=== PATIENT | female | born 1985 | race Caucasian/White ===

== ENCOUNTER 2022-11-25 18:35 | Emergency (ER) | payer SELFPAY ==
[~2022-11-25] VITALS: Ht 162.5 cm; Wt 94.7 kg
[2022-11-25 19:10] LABS: BILIRUBIN,URINE NEGATIVE (NEGATIVE); CLARITY,URINE CLEAR; COLOR,URINE YELLOW; GLUCOSE, URINE (UA) NEGATIVE (NEGATIVE); KETONES,URINE NEGATIVE (NEGATIVE); LEUKOCYTE ESTERASE ,URINE NEGATIVE (NEGATIVE); NITRITE,URINE NEGATIVE (NEGATIVE); PH,URINE 6.5 (5-9); PROTEIN,URINE NEGATIVE (NEGATIVE)
[2022-11-25 19:15] LABS: BACTERIA,URINE NEGATIVE /HPF
[2022-11-25] MEDS ORDERED: ONDANSETRON 4 MG ORAL DISSOLVE TABLET PO STA (19:31)
[2022-11-25] MEDS ORDERED: HYDROcodone/ACETAMINOPHEN 5 MG/325 MG TABLET PO ONE (19:45)
[2022-11-25] MEDS ORDERED: ONDA4TAB11 PO (19:50)
[2022-11-25] MEDS ORDERED: ACHD5005 PO (19:50)
[2022-11-25] MEDS ORDERED: NIRM1TAB PO (19:50)
--- NOTE | 2022-11-25 19:50 | ED Cough/URI ---
General Chief Complaint: COVID19 Suspect/Confirmed Stated Complaint: OB, FEVER Nursing Triage Note: Patient is 7 months . Patient reports that she began showing symptoms of illness yesterday. Patient reports fever, sore throat, headache, earache and vomiting. Patient is able to tolerate drinking fluid but is unable to hold down food. Patient took 650mg of Tylenol at 14:00 today. Source: patient, family (Has been), RN notes reviewed Exam Limitations: language barrier History of Present Illness Date Seen by Provider: Nov 25, 2022 Time Seen by Provider: 18:52 Initial Comments 37-year-old Northern Irish-speaking female patient from [place], at 28 weeks of gestation presented with her with complaining of nasal congestion, sore throat, earache, headache, nausea, posttussive vomiting, myalgia, subjective fever and not feeling good. Patient flew from [place] 5 days ago and did not have sick contact at home. Patient denies abdominal pain, contractions, vaginal bleeding or discharge, urinary symptoms. Patient tolerated oral intake. Timing/Duration: yesterday Severity/Quality: moderate, dry cough Associated Symptoms: cough, earache, fever/chills, headache, muscle aches, nasal congestion, nasal drainage, shortness of breath, sore throat Allergies and Home Medications Allergies Coded Allergies: No Known Drug Allergies (Unverified , 11/25/22) Patient Home Medication List Home Medication List Reviewed: Yes Hydrocodone/Acetaminophen (Hydrocodone-Acetamin 5-325 mg) 5 Mg-325 Mg Tablet, 1 TAB PO Q6H PRN for PAIN-MODERATE (5-7) Prescribed by: Andrea ashley on 11/25/221950 Nirmatrelvir/Ritonavir (Paxlovid 300-100 mg Pack (Eua)) 300 Mg (150 Mg X 2)-100 Mg Tab.ds.pk, 1 EACH PO DAILY Prescribed by: Andrea ashley on 11/25/221949 Ondansetron (Ondansetron Odt) 4 Mg Tab.rapdis, 4 MG PO TID PRN for NAUSEA-1ST LINE Prescribed by: Andrea ashley on 11/25/221949 Review of Systems Review of Systems Constitutional: see HPI EENTM: see HPI Respiratory: see HPI Cardiovascular: no symptoms reported Gastrointestinal: see HPI Genitourinary: see HPI Musculoskeletal: see HPI Skin: no symptoms reported Psychiatric/Neurological: No Symptoms Reported Hematologic/Lymphatic: No Symptoms Reported Immunological/Allergic: no symptoms reported Past Qridcgk-Vhovdg-Nwtamp Hx Patient Social History Tobacco Use?: No Substance use?: No Alcohol Use?: No Pt feels they are or have been: No Physical Exam Vital Signs - First Documented 11/25/22 18:40 Temp 37.3 Pulse 120 Resp 18 B/P (MAP) 153/90 (111) Pulse Ox 97 O2 Delivery Room Air Capillary Refill : Less Than 3 Seconds Height: '" Weight: lbs. oz. kg; 35.00 BMI Method: General Appearance: mild distress Eyes: Bilateral Eye Normal Inspection, Bilateral Eye PERRL HEENT: PERRL/EOMI, TMs normal, pharyngeal erythema Neck: non-tender, full range of motion, supple, normal inspection Respiratory: chest non-tender, lungs clear, normal breath sounds, no respiratory distress Cardiovascular: no edema, no gallop, tachycardia Gastrointestinal: normal bowel sounds, non tender, soft, other (Gravid abdomen, no contraction or tenderness) Extremities: normal range of motion, non-tender Neurologic/Psychiatric: alert Skin: normal color, warm/dry Lymphatic: no adenopathy Progress/Results/Core Measures Suspected Sepsis SIRS Temperature: Pulse: 120 Respiratory Rate: 18 Blood Pressure 153 /90 Mean: 111 Results/Orders Lab Results Laboratory Tests Test 11/25/22 18:46 11/25/22 19:02 Range/Units Urine Color YELLOW Urine Clarity CLEAR Urine pH 6.5 5-9 Urine Specific Severy <=1.005 1.016-1.022 Urine Protein NEGATIVE NEGATIVE Urine Glucose (UA) NEGATIVE NEGATIVE Urine Ketones NEGATIVE NEGATIVE Urine Nitrite NEGATIVE NEGATIVE Urine Bilirubin NEGATIVE NEGATIVE Urine Urobilinogen 0.2 < = 1.0 MG/DL Urine Leukocyte Esterase NEGATIVE NEGATIVE Urine RBC (Auto) NEGATIVE NEGATIVE Urine RBC NONE /HPF Urine WBC NONE /HPF Urine Squamous Epithelial Cells 5-10 /HPF Urine Crystals NONE /LPF Urine Bacteria NEGATIVE /HPF Urine Casts NONE /LPF Urine Mucus NEGATIVE /LPF Urine Culture Indicated NO Influenza Type A (RT-PCR) Not Detected Not Detecte Influenza Type B (RT-PCR) Not Detected Not Detecte SARS-CoV-2 RNA (RT-PCR) Detected H Not Detecte My Orders Orders - ANDREA ASHLEY MD Ua Culture If Indicated (11/25/22 19:01) Covid 19 Inhouse Test (11/25/22 19:01) Influenza A And B By Pcr (11/25/22 19:01) Hydrocodone/Apap 5/325 Tablet (Hydrocod (11/25/22 19:45) Ondansetron Oral Dissolve Tab (Ondanset (11/25/22 19:31) Medications Given in ED Current Medications Medications Dose Ordered Sig/Bailey Route Start Time Stop Time Status Last Admin Dose Admin Acetaminophen/ Hydrocodone Bitart 1 ea ONCE ONCE PO 11/25/22 19:45 11/25/22 19:46 DC 11/25/22 19:37 1 EA Vital Signs/I&O 11/25/22 11/25/22 18:40 19:51 Temp 37.3 Pulse 120 113 Resp 18 18 B/P (MAP) 153/90 (111) 153/98 Pulse Ox 97 99 O2 Delivery Room Air Room Air Capillary Refill : Less Than 3 Seconds Blood Pressure Mean: 111 Progress Note : Progress Note Differential diagnosis: COVID infection, influenza, UTI, viral upper respiratory infection 37-year-old at 28 weeks of gestation from [place] of town who flew from [place] 5 days ago presented with her who is translating for her with complaining of headache, earache, sore throat, cough, nausea and posttussive vomiting, myalgia since yesterday with subjective fever. Patient did not have fever in ER. Patient had mild tachycardia. Patient tolerated oral intake at home and in ER. UA, COVID, influenza was ordered and reviewed by me. Patient had positive COVID with unremarkable UA. Patient treated with L[place] and Zofran in ER and prescription for [place], Zofran, Paxlovid was given and advised to increase fluid intake and return to ER as needed. Departure Impression Primary Impression: COVID-19 virus infection Additional Impression: Currently in third trimester with unknown gestational age Disposition: 01 HOME, SELF-CARE Condition: Improved Departure-Patient Inst. Decision time for Depature: 19:47 Patient Instructions: COVID-19 Home Care/Dchg [place] Add. Discharge Instructions: Take Tylenol 650 mg every 6 hours for pain and fever Drink plenty of liquids Follow-up with your PLANNER SCHEDULER or return to ER as needed Quarantine at home for 5 days All discharge instructions reviewed with patient and/or family. Voiced understanding. Scripts Ondansetron (Ondansetron Odt) 4 Mg Tab.rapdis 4 MG PO TID PRN for NAUSEA-1ST LINE, #14 TAB Prov: ANDREA ASHLEY MD 11/25/22 Hydrocodone/Acetaminophen (Hydrocodone-Acetamin 5-325 mg) 5 Mg-325 Mg Tablet 1 TAB PO Q6H PRN for PAIN-MODERATE (5-7), #14 TAB Prov: ANDREA ASHLEY MD 11/25/22 Nirmatrelvir/Ritonavir (Paxlovid 300-100 mg Pack (Eua)) 300 Mg (150 Mg X 2)-100 Mg Tab.ds.pk 1 EACH PO DAILY for 5 Days, #1 PKG Prov: ANDREA ASHLEY MD 11/25/22 ANDREA ASHLEY MD Nov 25, 2022 19:49
[2022-11-25 19:51] VITALS: BP 153/98
== END 2022-11-25 19:52 | disposition home or self-care (01) ==
LOC: ER FS 18:35
DX: O98.513 Other viral diseases complicating pregnancy, third trimester (principal); U07.1 COVID-19; R50.9 Fever, unspecified; R51.9 Headache, unspecified; R11.2 Nausea with vomiting, unspecified; R09.81 Nasal congestion; O09.523 Supervision of elderly multigravida, third trimester; Z3A.28 28 weeks gestation of pregnancy
CPT/HCPCS: 81000; 87636; 99283